=== PATIENT | male | born 1975 | race Caucasian/White ===

== ENCOUNTER 2021-12-21 21:06 | Emergency (ER) | payer MEDICAID ==
[~2021-12-21] VITALS: Ht 175.3 cm; Wt 77.1 kg
--- NOTE | 2021-12-21 21:10 | NUR ---
Pt brought straight back to room ED3 by [id number] after pt was witnessed having a sz (this is his third time within the last year or two that he has had a sz. Pt states that it could be due tpo him quitting drinking on thursday, 4 days ago. Pt admits to being a very heavy drinker on the daily to the point where it was pathological. All instances of him having a sz was under similar circumstances. Pt presents completely normal, lucid, aaox4, VSS, PE WNL, denies any pain, dizziness, n/v, sob, diaphoresis, drug usage, injury from fall, ect. Did not bump head or hurt himself in anyway from the fall, states he was laying on grass when it happened. 145/71, 96%RA, 85bpm, NSR without ectopy. RRR normal s1s2, no r/m/g, lungs clear. oxygenating and perfusing well. No s/sx of distress present. pt states that he is otherwise healthy beside HTN and HLD.
--- NOTE | 2021-12-21 21:12 | NUR ---
EDMD at bedside for eval of pt condition.
--- NOTE | 2021-12-21 21:15 | NUR ---
auto body technician at bedside for lab draw and specimen collection.
--- NOTE | 2021-12-21 21:20 | NUR ---
at bedside to perform 12 lead EKG. Pt cooperative, exam was completed without difficulty. EKG results were neg.
[2021-12-21 21:32] LABS: HEMATOCRIT 39.9 % (36.7-47.1); MEAN CORPUSCULAR HEMOGLOBIN 36.5 uug (23.8-33.4); MEAN CORPUSCULAR VOLUME 106.7 fL (73.0-96.2); PLATELET COUNT (AUTO) 108 K/uL (152-348)
[2021-12-21 21:37] LABS: CARBON DIOXIDE 18 mmol/L (21-32); CHLORIDE 99 mmol/L (98-107); CREATININE 1.6 mg/dL (0.6-1.3); GLUCOSE 164 mg/dL (74-106); POTASSIUM 3.5 mmol/L (3.5-5.1); UREA NITROGEN, BLOOD 15 mg/dL (7-18)
[2021-12-21 21:43] LABS: ALANINE AMINOTRANSFERASE 84 U/L (16-63); ALKALINE PHOSPHATASE 77 U/L (50-136); ASPARTATE AMINOTRANSFERASE 87 U/L (15-37); BILIRUBIN,DIRECT 0.3 mg/dL (0.0-0.2); TOTAL PROTEIN, SERUM 8.1 g/dL (6.4-8.2)
[2021-12-21 21:46] LABS: ETHANOL < 3 MG/DL (0-0)
[2021-12-21 22:07] LABS: MAGNESIUM 1.4 mg/dL (1.8-2.4)
[2021-12-21] MEDS ORDERED: CYANOCOBALAMIN 1000 MCG/ML VIAL IM ONE (22:30)
--- NOTE | 2021-12-21 22:30 | NUR ---
Pt resting comfortably on gurney in pos of comfort patiently awaiting lab results and dispo from EDMD. Pt given two cups of water per request. Pt is still doing fine, seems completely fine/normal. VSS, PE wnl. Pt has IV in Lt forearm from the field. patent, flushing nicely and ready for med orders.
[2021-12-21] MEDS: MAGNESIUM SULFATE/D5W 100 ML IV SCH ×2 (22:38→23:30)
[2021-12-21] MEDS ORDERED: CYANOCOBALAMIN 1000 MCG/ML VIAL ONE (22:45)
[2021-12-21] MEDS ORDERED: MAGNESIUM SULFATE/D5W 100 ML ONE (22:46)
--- NOTE | 2021-12-21 23:00 | NUR ---
EDMD ordered 4g. Mag sulf due to pt being critically low; and a 1g. B12 injectrion IM stat. Meds given without incident. Pt tolelatel well, no signs of pain, sob, n/v or discomfort.
[2021-12-22] MEDS: MAGNESIUM SULFATE/D5W 100 ML IV SCH ×2 (00:30→01:30)
--- NOTE | 2021-12-22 01:25 | NUR ---
Pt given Dc instuctions and med infor and confirmed understanding. Pt told about risk of addiction with opoiods and told him there is a riscoo Addendum: 12/22/21 at 0327 by [email or web address] pt told there is a risk of addiction and to you it sparingly and save it for times when he is ex for moderate to severe pain only. Informed pt not to operated heavy machinery or drive when taking meds. Pt acknowledges understraanding. VSS, no s/sx of distress present.
[2021-12-22 03:34] VITALS: BP 145/78
== END 2021-12-22 01:30 | disposition home or self-care (01) ==
LOC: ER 21:06
DX: G40.909 Epilepsy, unspecified, not intractable, without status epilepticus (principal); R00.0 Tachycardia, unspecified; E83.42 Hypomagnesemia; I10 Essential (primary) hypertension; R73.9 Hyperglycemia, unspecified; R74.01 Elevation of levels of liver transaminase levels; F10.10 Alcohol abuse, uncomplicated; Y90.0 Blood alcohol level of less than 20 mg/100 ml; I45.10 Unspecified right bundle-branch block
CPT/HCPCS: 36415; 80048; 80076; 80320; 82607; 83735; 83921; 85025; 93005; 96365; 96366 ×2; 96372; 99284; J3420; J3475; A4663; G0480